=== PATIENT | male | born 1965 | race Caucasian/White ===

== ENCOUNTER → 2018-10-22 08:53 | Outpatient (CLI) | payer OTHER, SELFPAY ==
[2018-10-22 10:53] LABS: Cholesterol 241 mg/dL (140-199); HDL Cholesterol 49 mg/dL (40-60); LDL Cholesterol Calculated 157 mg/dL (<100); Triglycerides 177 mg/dL (35-150)
[2018-10-26 14:12] LABS: PSA Free % 33 % (calc) (> 25); PSA, Total 1.2 ng/mL (< 4.1)
== END ==
PROVIDERS: PCP Family Medicine; Visit Provider Internal Medicine
DX: N40.3 Nodular prostate with lower urinary tract symptoms (principal); E78.5 Hyperlipidemia, unspecified
CPT/HCPCS: 36415; 80061; 84153; 84154

== ENCOUNTER 2020-01-05 08:35 | Emergency (ER) | payer OTHER, MEDICAID, SELFPAY ==
[2020-01-05 08:43] VITALS: BP 161/86; PULSE 80; RESP 16; TEMP 36.4; O2SAT 100; BMI 25.0
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
--- NOTE | 2020-01-05 08:52 | DI.RAD.S_ITS ---
PROCEDURE: XR RIBS RT MIN 3V W CXR 1V INDICATIONS: fall pain x 3weeks TECHNIQUE: 2 views of the right ribs were acquired, along with a single view chest. COMPARISON: None. FINDINGS: Surgical changes and devices: None. Bones and chest wall: No fractures or dislocations. No suspicious bony lesions. Overlying soft tissues appear unremarkable. Lungs and pleura: No pleural effusions or pneumothorax. Lungs appear clear. Mediastinum: Mediastinal contours appear normal. Heart size is normal. IMPRESSION: No acute disease. No fracture. Dictated by: Noah Coe M.D. on 01/05/2020 at 9:48 Approved by: Noah Coe M.D. on 01/05/2020 at 9:50
[2020-01-05 10:03] VITALS: BP 124/74; PULSE 71; RESP 15; O2SAT 99
== END 2020-01-05 10:04 | disposition home or self-care (01) ==
PROVIDERS: Emergency Provider Emergency Medicine; PCP Family Medicine
DX: S20.211A Contusion of right front wall of thorax, initial encounter (principal); V19.3XXA Pedal cyclist (driver) (passenger) injured in unspecified nontraffic accident, initial encounter
CPT/HCPCS: 36415; 71101; 81003; 99283; 99284

== ENCOUNTER 2020-08-29 07:37 | Emergency (ER) | payer OTHER, SELFPAY ==
[2020-08-29 07:46] VITALS: BP 175/106; PULSE 63; RESP 20; TEMP 36.3; O2SAT 100; BMI 25.8
--- NOTE | 2020-08-29 07:53 | DI.RAD.S_ITS ---
PROCEDURE: XR CHEST 1V INDICATIONS: chest pain TECHNIQUE: One view of the chest was acquired. COMPARISON: None. FINDINGS: Surgical changes and devices: None. Lungs and pleura: Lungs are clear. No pleural effusions or pneumothorax. Mediastinum: Mediastinal contours appear normal. Heart size is normal. Bones and chest wall: No suspicious bony lesions. Overlying soft tissues appear unremarkable. IMPRESSION: Normal for age, source of current chest pain symptoms is not seen. Dictated by: Juanito Pride M.D. on 08/29/2020 at 8:21 Approved by: Juanito Pride M.D. on 08/29/2020 at 8:21
[2020-08-29 07:56] VITALS: PULSE 68; RESP 23; O2SAT 100
--- NOTE | 2020-08-29 07:59 | PC.NURSE ---
pt c/o chest pain going into arms. was seen at [facility] this morning for the same. pt was feeling better until he got home this morning. pt having sob states due to pain. pt has eyes squeezed shut due to pain, moving slowly. 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
[2020-08-29 08:00] VITALS: BP 161/98; PULSE 60; RESP 17; O2SAT 100
[2020-08-29 08:02] LABS: Add Manual Diff / Slide Review NO; Basophils Absolute Auto 100 /uL (0-100); Basophils Percent Auto 0.6 % (0-2); Eosinophils Absolute Auto 0 /uL (0-450); Eosinophils Percent Auto 0.4 % (2-4); Hematocrit 49.1 % (41-53); Hemoglobin 16.8 g/dL (13.5-17.5); Lymphocytes Absolute Auto 2800 /uL (1100-4500); Lymphocytes Percent Auto 32.3 % (25-40); Mean Corpuscular HGB Conc 34.3 % (30-36); Mean Corpuscular Hemoglobin 29.7 PG (26-34); Mean Corpuscular Volume 86.7 fL (80-100); Monocytes Absolute Auto 600 /uL (0-900); Monocytes Percent Auto 6.6 % (3-14); Neutrophils Absolute Auto 5200 /uL (1500-7000); Neutrophils Percent Auto 60.1 % (50-75); Platelet Count 243 X10^3/uL (150-400); Red Blood Cell Count 5.66 X10^6/uL (4.5-5.9); White Blood Cell Count 8.7 X10^3/uL (4.5-11.0)
[2020-08-29 08:03] LABS: Prothrombin Time 11.2 SECONDS (10.1-12.7)
[2020-08-29 08:06] LABS: PTT Partial Thromboplastin Tim 30 SECONDS (26.4-36.2)
[2020-08-29 08:08] LABS: Alanine Aminotransferase 42 IU/L (<50); Albumin 4.6 g/dL (3.5-5.0); Albumin Globulin Ratio 1.4 (1.0-2.8); Alkaline Phosphatase 63 U/L (38-126); Aspartate Aminotransferase 37 IU/L (17-59); BUN Creatinine Ratio 30.8 (6-22); Bilirubin Total 1.2 mg/dL (0.2-1.3); Blood Urea Nitrogen 24 mg/dL (9-20); Calcium 9.7 mg/dL (8.4-10.2); Carbon Dioxide 28 mmol/L (22-32); Chloride 103 mmol/L (98-107); Creatine Kinase 149 U/L (55-170); Estimated Glomerular Filt Rate > 60.0 mL/min (>60); Globulin 3.4 g/dL (1.7-4.1); Glucose 146 mg/dL (70-100); Lipase 72 U/L (23-300); Potassium 4.1 mmol/L (3.4-5.1); Sodium 136 mmol/L (137-145)
[2020-08-29] MEDS: NITROGLYCERIN 0.4 MG SL TAB SL ×3 (08:09→08:22)
[2020-08-29] MEDS: ASPIRIN 81 MG CHEW TAB 324 MG PO (08:09)
--- NOTE | 2020-08-29 08:09 | ED_ITS ---
HPI - Chest Pain General Chief Complaint: Chest Pain Stated Complaint: mid chest pain/upper arms today Time Seen by Provider: 08/29/20 08:00 Source: patient Mode of arrival: Ambulatory Limitations: no limitations History of Present Illness HPI narrative: Patient is a 55-year-old male with no past known medical history. Presenting today with chest pain. He woke up this morning around 2:00 a.m. which is is normal time to go to work he noticed some chest burning. He said it chronic came and went on never fully went away. He went to work and pain got significantly worse. He was seen and evaluated at [facility] early this morning he said he stayed there for couple of hours and was released from [facility] emergency department. He initially went home but pain got quite intense and he came here for evaluation. He says the pain is still present. It is in the center of his chest feels like burning not relieved with Tums. He has bilateral arm achiness. His father has had triple bypass he is a nonsmoker no other risk factors MD complaint: chest pain Duration: constant Quality: aching, heaviness and sharp Related Data Previous Rx's Medication Instructions Recorded prednisone 0 PO QDAY #3 tab 10/21/16 Allergies Allergy/AdvReac Type Severity Reaction Status Date / Time No Known Drug Allergies Allergy Verified 08/29/20 07:46 Review of Systems Review of Systems Narrative: GENERAL: Denies chills, fatigue, malaise, fever, sweats, travel HEENT: Denies sinus pain, ear pain, sore throat, difficulty swallowing, neck pain RESPIRATORY: Denies dyspnea, cough, wheezing, hemoptysis, sputum. CARDIOVASCULAR: See HPI GASTROINTESTINAL: Denies nausea, vomiting, abdominal pain, diarrhea, constipation, melena. : Denies dysuria, frequency, incontinence, hematuria, urinary retention, flank pain. MUSCULOSKELETAL: Denies weakness, joint pain, or bony pain SKIN: No rash, no erythema, no pruritus NEUROLOGIC: Denies weakness, dizziness, headache, numbness, change in speech, confusion PSYCHIATRIC: No concerning psychosocial issues. 12 point review of systems is negative except for those stated above and HPI Patient History Medical History (Updated 08/29/20 @ 08:17 by Rola Littlejohn DO) No known health problems (07/07/12) Social History Smoking Status: Never smoker Smoking Status: Never smoker alcohol intake frequency: other Substance Use Type: does not use Exam Initial Vital Signs Initial Vital Signs: Vital Signs Temperature 97.3 F L 08/29/20 07:46 Pulse Rate 63 08/29/20 07:46 Respiratory Rate 20 08/29/20 07:46 Blood Pressure 175/106 H 08/29/20 07:46 Pulse Oximetry 100 08/29/20 07:46 GENERAL: Well-appearing, well-nourished and in no acute distress. HEENT: Head atraumatic,EOMI, pupils reactive, face symmetric, moist mucous membranes CARDIOVASCULAR: Regular rate and rhythm without murmurs, rubs or gallops. RESPIRATORY: Breath sounds equal bilaterally, no wheezes rales or rhonchi. ABDOMEN: Soft, nontender. Normoactive bowel sounds all 4 quadrants. No guarding or rebound. EXTREMITIES: Normal range of motion, no clubbing or edema. Neurovascularly intact NEUROLOGICAL: Alert and oriented x4.Normal gait and speech. Cranial nerves II through XII grossly intact. SKIN: Warm, dry, no laceration, no petechiae, no rashes or lesions. Course Orders Ordered: ED Orders 08/29/20 EKG-12 Lead Stat EKG-12 Lead Stat 08/29/20 07:45 Complete Blood Count AUTO DIFF Stat Comprehensive Metabolic Panel Stat Lipase Stat Partial Thromboplastin Time Stat Prothrombin Time INR Stat Troponin & CK Cardiac Panel Stat 08/29/20 07:53 XR chest 1V Stat Heparin Sodium/Dextrose (Heparin Drip) 25,000 unit in 500 mls @ 20 mls/hr IV CONT VALERI; Protocol Last Admin: 08/29/20 08:15 Dose: 1,000 units/hr, 20 mls/hr Documented by: Nitroglycerin (Nitroglycerin 0.4 Mg Sl Tab) 0.4 mg SL [id number] PRN PRN Reason: Chest Pain Last Admin: 08/29/20 08:20 Dose: 0.4 mg Documented by: Discontinued Medications Aspirin (Aspirin 81 Mg Chew Tab) 324 mg PO NOW ONE Stop: 08/29/20 08:06 Last Admin: 08/29/20 08:09 Dose: 324 mg Documented by: Heparin Sodium (Porcine) (Heparin 5,000 Unit/Ml Vial) 5,000 unit IV NOW ONE Stop: 08/29/20 08:13 Last Admin: 08/29/20 08:15 Dose: 5,000 unit Documented by: Vital Signs Vital signs: Vital Signs - 8 hr 08/29/20 07:46 08/29/20 07:56 08/29/20 08:00 Temperature 97.3 F L Pulse Rate 63 68 60 Respiratory Rate 20 23 17 Blood Pressure 175/106 H 161/98 H Pulse Oximetry 100 100 100 MDM - Chest Pain Lab Data Result diagrams: 08/29/20 07:45 08/29/20 07:45 Labs: Lab Results 08/29/20 08/29/20 08/29/20 Range/Units 07:45 07:45 07:45 WBC 8.7 (4.5-11.0) X10^3/uL RBC 5.66 (4.5-5.9) X10^6/uL Hgb 16.8 (13.5-17.5) g/dL Hct 49.1 (41-53) % MCV 86.7 (80-100) fL MCH 29.7 (26-34) PG MCHC 34.3 (30-36) % RDW 13.0 (11.6-14.8) % Plt Count 243 (150-400) X10^3/uL Neut % (Auto) 60.1 (50-75) % Lymph % (Auto) 32.3 (25-40) % [place] % (Auto) 6.6 (3-14) % Eos % (Auto) 0.4 L (2-4) % Baso % (Auto) 0.6 (0-2) % Neut # (Auto) 5200 (6481-4171) /uL Lymph # (Auto) 2800 (2136-3093) /uL [place] # (Auto) 600 (0-900) /uL Eos # (Auto) 0 (0-450) /uL Baso # (Auto) 100 (0-100) /uL PT 11.2 (10.1-12.7) SECONDS INR 1.0 (0.9-1.3) APTT 30 (26.4-36.2) SECONDS Sodium 136 L (137-145) mmol/L Potassium 4.1 (3.4-5.1) mmol/L Chloride 103 (98-107) mmol/L Carbon Dioxide 28 (22-32) mmol/L BUN 24 H (9-20) mg/dL Creatinine 0.78 (0.66-1.25) mg/dL Estimated GFR > 60.0 (>60) mL/min BUN/Creatinine Ratio 30.8 H (6-22) Glucose 146 H (70-100) mg/dL Calcium 9.7 (8.4-10.2) mg/dL Total Bilirubin 1.2 (0.2-1.3) mg/dL AST 37 (17-59) IU/L ALT 42 (<50) IU/L Alkaline Phosphatase 63 (38-126) U/L Total Creatine Kinase 149 (55-170) U/L Total Protein 8.0 (6.3-8.2) g/dL Albumin 4.6 (3.5-5.0) g/dL Globulin 3.4 (1.7-4.1) g/dL Albumin/Globulin Ratio 1.4 (1.0-2.8) Lipase 72 (23-300) U/L Imaging Data Chest x-ray: Radiologist's Impression: PROCEDURE: XR CHEST 1V INDICATIONS: chest pain TECHNIQUE: One view of the chest was acquired. COMPARISON: None. FINDINGS: Surgical changes and devices: None. Lungs and pleura: Lungs are clear. No pleural effusions or pneumothorax. Mediastinum: Mediastinal contours appear normal. Heart size is normal. Bones and chest wall: No suspicious bony lesions. Overlying soft tissues ap pear unremarkable. IMPRESSION: Normal for age, source of current chest pain symptoms is not seen. Dictated by: Juanito Pride M.D. on 08/29/2020 at 8:21 ECG Data Attestation: I personally reviewed and interpreted this ECG as follows: Interpretation: EKG 1. Normal sinus rhythm rate 61 p.r. 150 ft T-waves noted in [address] depression in V3. EKG 2. ST elevation lead [address] depression in V2 and V3 Core Measures AMI core measures followed: Yes MDM Narrative Medical decision making narrative: Patient initial EKG does show peaked T-waves history is concerning. 2nd EKG does show more elevation in inferior leads. Dr. Rosas ED physician at [facility] updated on patient's symptoms test results accepts patient for transfer Critical Care Time Critical Care Time Critical Care Time: Yes Total Critical Care Time: 30 Attestation: The high probability of a clinically significant, sudden or life threatening deterioration of the [cardiovascular] system(s) required my full and direct attention, intervention and personal management. The aggregate critical care time was 30 minutes. This time is in addition to time spent performing reported procedures but includes the following: [x] Data Review and interpretation [x] Patient assessment and monitoring of vital signs [x] Documentation [x] Medication orders and management Discharge Plan Departure Patient Disposition: [facility] Clinical Impression: ST elevation myocardial infarction (STEMI) Qualifiers: Involved coronary artery: right coronary artery Qualified Code(s): I21.11 - ST elevation (STEMI) myocardial infarction involving right coronary artery Prescriptions: No Action prednisone 20 MG tablet 0 PO QDAY Qty: 3 RF: 0 Referrals: Ruth Ingram MD [Primary Care Provider] -
[2020-08-29] MEDS: HEPARIN DRIP 25,000 UNIT/500 ML IV.SOLN 20 UNIT IV (08:15)
[2020-08-29] MEDS: HEPARIN 5,000 UNIT/ML VIAL 5000 UNIT IV (08:15)
[2020-08-29 08:18] VITALS: BP 136/82; PULSE 66; RESP 15; O2SAT 96
[2020-08-29 08:23] LABS: CKMB % Relative Index 3.4 % (1.5-5.0)
--- NOTE | 2020-08-29 08:26 | PC.NURSE ---
Pt out the door with EMS to [facility] ER
[2020-08-29 08:43] LABS: HEMOLYSIS 34 (0-50)
[2020-08-29 08:44] LABS: Troponin I 0.123 ng/mL (0.01-0.034)
[2020-08-29 09:06] LABS: COVID19 -Nasal RAPID Negative (Negative)
== END 2020-08-29 08:26 | disposition short-term general hospital (02) ==
PROVIDERS: Emergency Provider Emergency Medicine; PCP Family Medicine
DX: I21.11 ST elevation (STEMI) myocardial infarction involving right coronary artery (principal); Z20.822 Contact with and (suspected) exposure to COVID-19
CPT/HCPCS: 36415; 71045; 80053; 82550; 82553; 83690; 84484; 85025; 85610; 85730; 87635; 93005; 96374; 99283; 99291; C9803; J1644

== ENCOUNTER → 2020-11-21 11:51 | Outpatient (CLI) | payer OTHER, SELFPAY ==
[2020-11-21 14:44] LABS: COVID19 -Nasal RAPID POSITIVE (Negative)
== END ==
PROVIDERS: PCP Family Medicine; Visit Provider Physician Assistant
DX: Z20.822 Contact with and (suspected) exposure to COVID-19 (principal)
CPT/HCPCS: 87635

== ENCOUNTER → 2021-01-03 07:09 | Outpatient (CLI) | payer OTHER, SELFPAY ==
[2021-01-03 11:36] LABS: Add Manual Diff / Slide Review NO; Basophils Absolute Auto 0 /uL (0-100); Basophils Percent Auto 0.6 % (0-2); Eosinophils Absolute Auto 100 /uL (0-450); Eosinophils Percent Auto 1.1 % (2-4); Hematocrit 47.3 % (41-53); Hemoglobin 15.9 g/dL (13.5-17.5); Lymphocytes Absolute Auto 1700 /uL (1100-4500); Lymphocytes Percent Auto 28.5 % (25-40); Mean Corpuscular HGB Conc 33.6 % (30-36); Mean Corpuscular Hemoglobin 29.6 PG (26-34); Mean Corpuscular Volume 88.1 fL (80-100); Monocytes Absolute Auto 300 /uL (0-900); Monocytes Percent Auto 5.4 % (3-14); Neutrophils Absolute Auto 3900 /uL (1500-7000); Neutrophils Percent Auto 64.4 % (50-75); Platelet Count 214 X10^3/uL (150-400); Red Blood Cell Count 5.37 X10^6/uL (4.5-5.9); White Blood Cell Count 6.1 X10^3/uL (4.5-11.0)
[2021-01-03 11:52] LABS: Blood Urea Nitrogen 16 mg/dL (9-20); Calcium 9.6 mg/dL (8.4-10.2); Carbon Dioxide 30 mmol/L (22-32); Chloride 106 mmol/L (98-107); Cholesterol 225 mg/dL (140-199); Estimated Glomerular Filt Rate > 60.0 mL/min (>60); Glucose 100 mg/dL (70-100); HDL Cholesterol 51 mg/dL (40-60); HEMOLYSIS 20 (0-50); LDL Cholesterol Calculated 143 mg/dL (<100); Potassium 4.4 mmol/L (3.4-5.1); Sodium 141 mmol/L (137-145); Triglycerides 157 mg/dL (35-150)
--- NOTE | 2021-01-03 18:21 | DI.NM.S_ITS ---
DATE OF SERVICE: 01/03/2021 PROCEDURE PERFORMED: Exercise treadmill stress and rest myocardial perfusion imaging with gating to assess ejection fraction and regional wall motion. ORDERING PROVIDER: Dr. Panchito Cooley. INDICATIONS: The patient is a 55-year-old male status post inferolateral STEMI in August who requires assessment prior to [facility] approval. EXERCISE TREADMILL TESTING: The patient was able to exercise for 10 minutes, 11 seconds on a standard Rosendo protocol suggesting good exercise capacity with an MARVEL of -9%, achieving 12.8 METs. He had a normal heart rate response, achieving a maximum heart rate of 168 (103% of his predicted maximum). He had a borderline hypertensive blood pressure response with a resting blood pressure of 110/80, increasing to a maximum of 200/110. He had no chest discomfort or other anginal symptoms. ECGs were obtained on a [id number] basis. His resting ECG shows sinus rhythm with inferolateral Q-waves with associated repolarization abnormality. With stress, there are no significant ST- segment shifts or arrhythmias. He had occasional isolated PVCs in recovery, but no complex ventricular ectopy. At 8 minutes, 50 seconds of exercise at a heart rate of 149 BPM, 26.3 millicuries of technetium-99m Myoview was injected and the patient was imaged 20 minutes later using a gated SPECT acquisition protocol. Earlier in the day while at rest, he was injected with 9.8 millicuries of technetium-99m Myoview and was imaged 30 minutes later, again using a gated quantitated gated SPECT protocol. FINDINGS: 1. Raw Data: There is fairly good myocardial tracer uptake. Lung/heart ratio is normal at 0.29 with a normal TID ratio of 0.87. 2. Quantitated gated SPECT: Post-stress ejection fraction is estimated at 61%, although visually appears likely closer to 50 to 55% with significant hypokinesis of the proximal and mid inferolateral wall and akinesis distally. The resting ejection fraction is estimated at 51% and appears similar to that of the post-stress images with no significant change in the wall motion. 3. Myocardial perfusion imaging: The post-stress supine images show a fairly large, severe perfusion defect encompassing the majority of the lateral wall and inferolateral wall, extending out to the apex. There is fairly good perfusion of the anterior wall, septum, and proximal inferior wall. These perfusion defects persist on the prone images. The resting images show an identical perfusion pattern with no significant improvement in the lateral and inferolateral perfusion defect. IMPRESSION: 1. Abnormal myocardial perfusion study. 2. Evidence for a moderate to large lateral and inferolateral transmural myocardial infarction but with no significant myocardial ischemia. 3. Borderline reduced left ventricular systolic function with hypokinesis in the inferolateral wall,with akinesis distally. 4. Good exercise capacity without angina or ECG evidence of ischemia. There were rare isolated PVCs, but no concerning arrhythmias. Galen Burton - FIONA/yvan/ilir doc#: [id number]/job#: [id number] dd: 01/03/2021 13:05:00 dt: 01/03/2021 18:04:00 DICTATING MD/COPIES TO: Cesar Bello MD; Beba Cooley MD COPIES MNE: DOMINIC;
== END ==
PROVIDERS: PCP Family Medicine; Referring Provider Internal Medicine Cardiovascular Disease; Visit Provider Internal Medicine Cardiovascular Disease
DX: R94.39 Abnormal result of other cardiovascular function study (principal); I25.10 Atherosclerotic heart disease of native coronary artery without angina pectoris; I25.2 Old myocardial infarction; E78.5 Hyperlipidemia, unspecified; Z95.5 Presence of coronary angioplasty implant and graft
CPT/HCPCS: 36415; 78452; 80048; 80061; 85025; 93017; A9502

== ENCOUNTER → 2021-04-10 09:19 | Outpatient (CLI) | payer OTHER, MEDICAID, SELFPAY ==
[2021-04-10 10:28] LABS: Cholesterol 243 mg/dL (140-199); HDL Cholesterol 67 mg/dL (40-60); LDL Cholesterol Calculated 157 mg/dL (<100); Triglycerides 95 mg/dL (35-150)
== END ==
PROVIDERS: PCP Family Medicine; Referring Provider Internal Medicine Cardiovascular Disease; Visit Provider Internal Medicine Cardiovascular Disease
DX: E78.5 Hyperlipidemia, unspecified (principal)
CPT/HCPCS: 36415; 80061

== ENCOUNTER → 2021-09-13 12:35 | Outpatient (CLI) | payer OTHER, MEDICAID, SELFPAY ==
[2021-09-13 14:20] LABS: Add Manual Diff / Slide Review NO; Basophils Absolute Auto 0 /uL (0-100); Basophils Percent Auto 0.7 % (0-2); Eosinophils Absolute Auto 100 /uL (0-450); Eosinophils Percent Auto 1.1 % (2-4); Hemoglobin 15.8 g/dL (13.5-17.5); Lymphocytes Absolute Auto 2100 /uL (1100-4500); Lymphocytes Percent Auto 30.9 % (25-40); Mean Corpuscular HGB Conc 34.3 % (30-36); Mean Corpuscular Hemoglobin 30.1 PG (26-34); Mean Corpuscular Volume 87.8 fL (80-100); Monocytes Absolute Auto 400 /uL (0-900); Monocytes Percent Auto 6.2 % (3-14); Neutrophils Absolute Auto 4200 /uL (1500-7000); Neutrophils Percent Auto 61.1 % (50-75); Platelet Count 65 X10^3/uL (150-400); Red Blood Cell Count 5.24 X10^6/uL (4.5-5.9); Red Cell Distribution Width 13.5 % (11.6-14.8); White Blood Cell Count 6.8 X10^3/uL (4.5-11.0)
[2021-09-13 14:44] LABS: Blood Urea Nitrogen 16 mg/dL (9-20); Calcium 9.4 mg/dL (8.4-10.2); Carbon Dioxide 24 mmol/L (22-32); Chloride 107 mmol/L (98-107); Estimated Glomerular Filt Rate > 60.0 mL/min (>60); Glucose 78 mg/dL (70-100); Potassium 4.5 mmol/L (3.4-5.1); Sodium 137 mmol/L (137-145)
[2021-09-13 15:09] LABS: HEMOLYSIS 131 (0-50)
== END ==
PROVIDERS: PCP Family Medicine; Referring Provider Internal Medicine Cardiovascular Disease; Visit Provider Internal Medicine Cardiovascular Disease
DX: I25.10 Atherosclerotic heart disease of native coronary artery without angina pectoris (principal); I25.2 Old myocardial infarction
CPT/HCPCS: 36415; 80048; 85025

== ENCOUNTER → 2021-09-19 09:51 | Outpatient (CLI) | payer OTHER, MEDICAID, SELFPAY ==
[2021-09-19 11:31] LABS: Cholesterol 196 mg/dL (140-199); HDL Cholesterol 72 mg/dL (40-60); LDL Cholesterol Calculated 105 mg/dL (<100); Triglycerides 96 mg/dL (35-150)
== END ==
PROVIDERS: PCP Family Medicine; Referring Provider Internal Medicine Cardiovascular Disease; Visit Provider Internal Medicine Cardiovascular Disease
DX: E78.5 Hyperlipidemia, unspecified (principal)
CPT/HCPCS: 36415; 80061

== ENCOUNTER → 2022-01-11 11:43 | Outpatient (CLI) | payer OTHER, MEDICAID, SELFPAY ==
[2022-01-11 13:19] LABS: Add Manual Diff / Slide Review NO; Basophils Absolute Auto 100 /uL (0-100); Basophils Percent Auto 0.8 % (0-2); Eosinophils Absolute Auto 100 /uL (0-450); Eosinophils Percent Auto 1.1 % (2-4); Hematocrit 42.2 % (41-53); Hemoglobin 15.1 g/dL (13.5-17.5); Lymphocytes Absolute Auto 2100 /uL (1100-4500); Mean Corpuscular HGB Conc 35.8 % (30-36); Mean Corpuscular Hemoglobin 30.1 PG (26-34); Mean Corpuscular Volume 84.1 fL (80-100); Monocytes Absolute Auto 400 /uL (0-900); Monocytes Percent Auto 6.3 % (3-14); Neutrophils Absolute Auto 4200 /uL (1500-7000); Neutrophils Percent Auto 60.8 % (50-75); Platelet Count 225 X10^3/uL (150-400); Red Blood Cell Count 5.01 X10^6/uL (4.5-5.9); White Blood Cell Count 6.9 X10^3/uL (4.5-11.0)
[2022-01-11 14:04] LABS: BUN Creatinine Ratio 13.3 (6-22); Blood Urea Nitrogen 11 mg/dL (9-20); Calcium 9.4 mg/dL (8.4-10.2); Carbon Dioxide 23 mmol/L (22-32); Chloride 103 mmol/L (98-107); Cholesterol 109 mg/dL (140-199); Estimated Glomerular Filt Rate > 60 mL/min (>60); Glucose 74 mg/dL (70-100); HDL Cholesterol 56 mg/dL (40-60); HEMOLYSIS < 15 (0-50); LDL Cholesterol Calculated 38 mg/dL (<100); Potassium 3.8 mmol/L (3.4-5.1); Sodium 137 mmol/L (137-145); Triglycerides 77 mg/dL (35-150)
== END ==
PROVIDERS: PCP Family Medicine; Referring Provider Internal Medicine Cardiovascular Disease; Visit Provider Internal Medicine Cardiovascular Disease
DX: I25.10 Atherosclerotic heart disease of native coronary artery without angina pectoris (principal); E78.5 Hyperlipidemia, unspecified
CPT/HCPCS: 36415; 80048; 80061; 85025

== ENCOUNTER → 2023-01-12 | Outpatient (CLI) | payer OTHER, SELFPAY ==
[2023-01-12 11:08] LABS: Add Manual Diff / Slide Review NO; Basophils Absolute Auto 100 /uL (0-100); Basophils Percent Auto 1.1 % (0-2); Eosinophils Absolute Auto 100 /uL (0-450); Eosinophils Percent Auto 2.5 % (2-4); Hematocrit 44.6 % (41-53); Hemoglobin 15.4 g/dL (13.5-17.5); Lymphocytes Absolute Auto 1800 /uL (1100-4500); Lymphocytes Percent Auto 35.8 % (25-40); Mean Corpuscular HGB Conc 34.5 % (30-36); Mean Corpuscular Hemoglobin 29.8 PG (26-34); Mean Corpuscular Volume 86.5 fL (80-100); Monocytes Absolute Auto 300 /uL (0-900); Neutrophils Absolute Auto 2600 /uL (1500-7000); Neutrophils Percent Auto 53.6 % (50-75); Platelet Count 227 X10^3/uL (150-400); Red Blood Cell Count 5.16 X10^6/uL (4.5-5.9); Red Cell Distribution Width 13.6 % (11.6-14.8); White Blood Cell Count 4.9 X10^3/uL (4.5-11.0)
[2023-01-12 11:36] LABS: BUN Creatinine Ratio 17.2 (6-22); Blood Urea Nitrogen 15 mg/dL (9-20); Calcium 9.4 mg/dL (8.4-10.2); Carbon Dioxide 27 mmol/L (22-32); Chloride 104 mmol/L (98-107); Cholesterol 233 mg/dL (140-199); Estimated Glomerular Filt Rate > 60 mL/min (>60); Glucose 89 mg/dL (70-100); HDL Cholesterol 62 mg/dL (40-60); HEMOLYSIS < 15 (0-50); LDL Cholesterol Calculated 155 mg/dL (<100); Potassium 4.3 mmol/L (3.4-5.1); Sodium 136 mmol/L (137-145); Triglycerides 78 mg/dL (35-150)
--- NOTE | 2023-01-22 11:47 | DI.NM.S_ITS ---
DATE OF SERVICE: INDICATIONS: Known history of circumflex territory infarction, hypertension, hyperlipidemia. Exercise perfusion study is being planned for risk stratification as patient is a diesel truck mechanic. CARDIAC STRESS: The patient walked on Rosendo. RADIOPHARMACEUTICAL: 25.6 millicurie technetium-99m Myoview IV was injected at stress and 12.0 millicurie technetium-99m Myoview IV was injected at rest. CARDIAC STRESS: The patient underwent exercise perfusion study under the supervision of an attending staff. The patient walked on Rosendo protocol for 11 minute, 21 seconds, achieved maximum heart rate of 167, which was 104% of target heart rate. Resting blood pressure was 130/78 and peak blood pressure was 180/72 mmHg. Achieved 12.8 METs of workload. MARVEL -25%. Baseline rhythm was sinus. During stress, there was no convincing ischemic changes seen. No significant sustained arrhythmias seen. No chest pain. The patient felt fatigue. RAW DATA: There is increased subdiaphragmatic activity. GATED STUDY: Resting LV ejection fraction 51 and stress LV ejection fraction 58% with inferior lateral, apical and lateral wall hypokinesis. Resting end-diastolic volume 144 mL. TID ratio 0.79, which is within normal limits. Lung/heart ratio 0.28, which is within normal limits. MYOCARDIAL PERFUSION SCAN: Stress supine, resting supine and stress prone images were compared to each other. There appears to be predominantly fixed, large size, severely decreased perfusion of lateral wall extending into the mid to distal inferolateral wall as well as the entire apex without any significant reversible ischemia. CONCLUSION: This is an abnormal myocardial perfusion study consistent with large infarction in the circumflex territory as stated above without any significant change from the perfusion scan of January 2021. Excellent exercise tolerance. Normal hemodynamic response. Stress left ventricular ejection fraction 58 and resting LV ejection fraction 51%. No significant arrhythmias or anginal symptoms. Overall, low-risk exercise stress test. Galen Burton - BENJIE/yvan/jeremy doc#: [id number]/job#: [id number] dd: 01/12/2023 17:32:00 dt: 01/12/2023 18:28:00 DICTATING MD/COPIES TO: Lamonte Renae MD COPIES MNE: CHRISTINE;
== END ==
LOC: NUCM 10:01
PROVIDERS: PCP Family Medicine; Referring Provider Internal Medicine Cardiovascular Disease; Visit Provider Internal Medicine Cardiovascular Disease
DX: I25.10 Atherosclerotic heart disease of native coronary artery without angina pectoris (principal); I25.2 Old myocardial infarction; R94.39 Abnormal result of other cardiovascular function study; I10 Essential (primary) hypertension; E78.5 Hyperlipidemia, unspecified; Z95.5 Presence of coronary angioplasty implant and graft
CPT/HCPCS: 36415; 78452; 80048; 80061; 85025; 93017; A9502

== ENCOUNTER → 2023-12-24 08:18 | Outpatient (CLI) | payer OTHER, SELFPAY ==
[2023-12-24 09:34] LABS: Add Manual Diff / Slide Review NO; Basophils Absolute Auto 0 /uL (0-100); Basophils Percent Auto 0.6 % (0-2); Eosinophils Absolute Auto 200 /uL (0-450); Eosinophils Percent Auto 2.5 % (2-4); Hematocrit 47.5 % (41-53); Hemoglobin 16.4 g/dL (13.5-17.5); Lymphocytes Absolute Auto 2300 /uL (1100-4500); Lymphocytes Percent Auto 36.2 % (25-40); Mean Corpuscular HGB Conc 34.5 % (30-36); Mean Corpuscular Hemoglobin 30.4 PG (26-34); Mean Corpuscular Volume 88.1 fL (80-100); Monocytes Absolute Auto 500 /uL (0-900); Monocytes Percent Auto 7.2 % (3-14); Neutrophils Absolute Auto 3400 /uL (1500-7000); Neutrophils Percent Auto 53.5 % (50-75); Platelet Count 245 X10^3/uL (150-400); Red Blood Cell Count 5.39 X10^6/uL (4.5-5.9); Red Cell Distribution Width 13.5 % (11.6-14.8); White Blood Cell Count 6.3 X10^3/uL (4.5-11.0)
[2023-12-24 09:44] LABS: BUN Creatinine Ratio 15.6 (6-22); Blood Urea Nitrogen 15 mg/dL (9-20); Calcium 9.5 mg/dL (8.4-10.2); Carbon Dioxide 24 mmol/L (22-32); Chloride 106 mmol/L (98-107); Cholesterol 249 mg/dL (140-199); Estimated Glomerular Filt Rate > 60 mL/min (>60); Glucose 115 mg/dL (80-110); HDL Cholesterol 71 mg/dL (40-60); HEMOLYSIS < 15 (0-50); LDL Cholesterol Calculated 145 mg/dL (<100); Potassium 4.6 mmol/L (3.4-5.1); Sodium 137 mmol/L (137-145); Triglycerides 164 mg/dL (35-150)
== END ==
PROVIDERS: PCP Family Medicine; Referring Provider Internal Medicine Cardiovascular Disease; Visit Provider Internal Medicine Cardiovascular Disease
DX: E78.5 Hyperlipidemia, unspecified (principal); I25.10 Atherosclerotic heart disease of native coronary artery without angina pectoris
CPT/HCPCS: 36415; 80048; 80061; 85025

== ENCOUNTER → 2024-04-05 08:19 | Outpatient (CLI) | payer OTHER, SELFPAY | PROVIDERS: Referring Provider Chiropractor; Visit Provider Chiropractor | DX: R06.02 Shortness of breath (principal); I25.9 Chronic ischemic heart disease, unspecified | CPT/HCPCS: 94010 ==

== ENCOUNTER → 2024-04-07 07:53 | Outpatient (CLI) | payer OTHER, SELFPAY ==
--- NOTE | 2024-04-07 07:54 | DI.ECHO.S_ITS ---
[place] [facility] : : [address] : [address] [address] : : [id number] : : Phone: [phone] Echocardiogram Report + + :Name: BRYANT العلي Study Date: 04/07/2024 Height: 70 in : :Hospital ReadingLocation: Weight: 174 lb : : Gender: Male BSA: 2.0 m2 : :: 1965 Age: 58 yrs BP: 121/90 mmHg: :Reason For Study: ISCHEMIC HEART DISEASE : :Ordering Physician: EMANI, : :TORRIE Performed By: Vincent Cotton : :Referring: TORRIE JOAQUIN : + + Interpretation Summary 1) Normal left ventricular thickness and size with mildly reduced systolic function (EF about 45%). 2) Mid to apical anterolateral wall and mid to distal inferolateral wall are akinetic. 3) Normal right ventricular size and function. 4) No significant valvular abnormalities. 5) Compared to the Echo done 08/29/2020, no significant change. Procedure: A two-dimensional transthoracic echocardiogram with color flow and Doppler was performed. The study quality was technically good. Comparison is made with the echocardiogram of 08/29/2020. The patient was in normal sinus rhythm during the exam. Left Ventricle: The left ventricle is normal in size. There is normal left ventricular wall thickness. There is no ventricular septal defect visualized. Left ventricular ejection fraction is estimated to be 45 +/- 5%. Mid to apical anterolateral wall and mid to distal inferolateral wall are akinetic. Right Ventricle: The right ventricle is normal in size and function. Atria: The left atrial size is normal. Right atrial size is normal. There is no Doppler evidence for an atrial septal defect. Mitral Valve: The mitral valve is normal in structure and function. There is no mitral regurgitation noted. Aortic Valve: The aortic valve is trileaflet. The aortic valve opens well. No aortic regurgitation is present. Tricuspid Valve: The tricuspid valve is normal in structure and function. No tricuspid regurgitation. Pulmonic Valve: The pulmonic valve is normal in structure and function. There is trace pulmonic regurgitation. Great Vessels: The aortic root is mildly dilated. The dimensions of the ascending aorta are normal. The pulmonary artery is normal size. The IVC is of normal diameter and collapses greater than 50% with a sniff. This suggests a low right atrial pressure of 3 mm Hg. Pericardium/ Pleura There is no pericardial effusion. There is no pleural effusion. MMode/2D Measurements & Calculations LVIDd: 5.2 cm LVOT diam: 2.3 cm LVIDs: 4.1 cm Ao root diam: 3.8 cm FS: 20.8 % Aortic Jxn: 2.9 cm EPSS: 1.0 cm asc Aorta Diam: 3.2 cm IVSd: 0.80 cm Ao Arch Diam (Prox Trans): 2.5 cm LVPWd: 0.96 cm LV ivan. diameter/BSA (cm/m^2): 2.6 LV sys. diameter/BSA (cm/m^2): 2.1 LA A2 area: 18.4 cm2 RA long axis: 4.2 cm LA A4 area: 14.6 cm2 RA area: 10.0 cm2 LA length (vol): 5.2 cm RA vol: 20.3 ml LA vol: 43.9 ml RA : 10.3 ml/m2 LA vol index: 22.3 ml/m2 IVC diam: 1.8 cm RVD1 (basal): 3.4 cm RVD2 (mid): 2.5 cm TAPSE: 1.8 cm Doppler Measurements & Calculations Ao V2 max: 94.8 cm/sec LVOT Max Nelson: 85.3 cm/sec Ao V2 mean: 72.8 cm/sec LV V1 max P.9 mmHg Ao max P.6 mmHg LV V1 VTI: 20.6 cm Ao mean P.3 mmHg DANYEL(I,D): 4.2 cm2 Ao V2 VTI: 20.0 cm DANYEL(V,D): 3.6 cm2 sev ratio: 1.0 DANYEL indexed to BSA (cm^2/m^2): 2.1 MV E max nelson: 48.1 cm/sec PA V2 max: 63.1 cm/sec MV A max nelson: 65.3 cm/sec PA V2 mean: 45.7 cm/sec MV E/A: 0.74 PA mean P.94 mmHg Med Peak E' Nelson: 5.8 cm/sec PA pr(Accel): 43.0 mmHg E/E' med: 8.3 Lat Peak E' Nelson: 7.4 cm/sec E/E' lat: 6.5 E/e' average: 7.4 MV dec time: 0.15 sec SV(LVOT): 83.0 ml Reading Physician:10:32 AM
== END ==
PROVIDERS: Referring Provider Chiropractor; Visit Provider Chiropractor
DX: I77.89 Other specified disorders of arteries and arterioles (principal); I25.9 Chronic ischemic heart disease, unspecified; R06.02 Shortness of breath
CPT/HCPCS: 93306

== ENCOUNTER → 2025-01-03 07:31 | Outpatient (CLI) | payer OTHER, SELFPAY ==
[2025-01-03 08:48] LABS: Hematocrit 45.7 % (41-53); Hemoglobin 15.8 g/dL (13.5-17.5); Mean Corpuscular HGB Conc 34.6 % (30-36); Mean Corpuscular Hemoglobin 30.8 PG (26-34); Mean Corpuscular Volume 89.0 fL (80-100); Platelet Count 224 X10^3/uL (150-400)
[2025-01-03 09:07] LABS: Blood Urea Nitrogen 22 mg/dL (9-20); Calcium 9.7 mg/dL (8.4-10.2); Carbon Dioxide 21 mmol/L (22-32); Chloride 105 mmol/L (98-107); Cholesterol 235 mg/dL (140-199); Estimated Glomerular Filt Rate > 60 mL/min (>60); Glucose 114 mg/dL (70-99); HDL Cholesterol 62 mg/dL (40-60); HEMOLYSIS 21 (0-50); Potassium 4.3 mmol/L (3.4-5.1); Sodium 137 mmol/L (137-145); Triglycerides 161 mg/dL (35-150)
== END ==
PROVIDERS: Referring Provider Internal Medicine Cardiovascular Disease; Visit Provider Internal Medicine Cardiovascular Disease
DX: I25.10 Atherosclerotic heart disease of native coronary artery without angina pectoris (principal)
CPT/HCPCS: 36415; 80048; 80061; 85027